=== PATIENT | male | born 1960 | race Caucasian/White ===

== ENCOUNTER 2019-10-13 11:00 | Outpatient (AMB) | payer MEDICAID, SELFPAY ==
[2019-10-13 11:00] VITALS: BMI 21.1
--- NOTE | 2019-10-13 11:00 | CWCCLINC_ITS ---
Review of Systems Review of Systems ROS Unobtainable: All systems reviewed & no additional complaints except as documented GI Gastrointestinal: Reports nausea and Reports other (hiccups) Musc Musculoskeletal: Reports back pain Skin/Breast Skin/Breast: Reports lesions (healing fistula at J-tube insertion site, 7-8 surgical incisions) Aller/Immun Comments: Allergy induced asthma Exam Const General: cooperative Orientation: alert Psych Mental Status: mental status grossly normal Mood: congruent mood Affect: normal affect Speech and Movement: speech and movement normal Attitude: cooperative Thought Process: normal Thought Content: normal Judgment: judgment good Supplemental Info Assessment and Plan 1. Esophageal cancer. S/P surgical resection with shortened esophagus. Do not anticipate mal-absorption issues as remainder of GI tract was not altered. Patient having some symptoms of reflux and lactose intolerance. Recommended smaller, more frequent meals and slower eating as well as lactose avoidance or use of Lactaid-type products. Patient to consult soon for post-surgical chemo. Advised patient of 1-[address] Jiménez for planning purposes. Re-assess at next encounter. 2. Asthma. Chronic. Patient continues to use Flovent on a PRN basis, which was previously advised against, but symptoms appear controlled at this time as PRN CHRISTOPHER use has significantly decreased to less than 1/week with no reported nighttime awakenings. Defer to PCP for continued management. 3. Low back pain. Chronic. CT from 04/22/2019 demonstrates moderate disc narrowing L5-S1. Patient aware of physical limitations and is controlling pain with physical accommodations and Harrah. Patient plans on seeing a specialist following completion of chemo. Monitor. 4. Fistula. Acute, improving following recent bedside excision in ED. Discharge significantly reduced to scant. Anticipate continued improvement and resolution. Re-assess at next encounter. Clinical Pharmacist Assessment Consultation Type Referral Source: Follow-Up Visit Program Patient eligibility programs: 2.7 Palliative Care Health Conditions Health Conditions: Esophageal CA Constipation IDT Present IDT Present: MD Dona Garber RN Lupe Fernandez, MSW Tiffany Lu, RD Patients stated concerns Patient's stated concerns: Hiccups, nausea when drinking fluids quickly Need for post-surgical chemo Scant drainage from fistula Subjective notes Subjective Narrative: Stefan is a pleasant 59 YO M who is on a telephone conference today for routine Palliative Care follow-up. He reports that his surgery went well as [facility] for esophageal CA. He states they removed a portion of his esophagus and 17 lymph nodes, 12 of which were positive. He has 7-8 incision sites which are healing well but his stomach incision looks rough . He reports having his J-tube accidentally pulled out about an hour before discharge from [facility]. He states he then had a lot of drainage from the site and underwent a surgical procedure in the ER a week ago. He states it is now draining just a small amount of whatever he drinks and he expects in to completely dry up in 1-2 days. He states his appetite is good and he is eating normally. He states he needs to drink fluids slowly or else he will get nausea or the hiccups. He states his weight was at a low of 130 lb when he originally was discharged from [facility] and he is now up to 146 lb He states he is expecting an appointment soon to see a medical oncologist at [facility] for post-surgical chemo. He states if the chemo is once every one or two weeks he is ok with travelling to [facility] for chemo but if it is more frequent he would rather see Dr. Jiménez locally. He states he has a follow-up with his [facility] surgeon in 3 months. He states his energy level is improving and he is walking every day and is able to work in the garden. He states he does experience low back pain if he stands, does too much or is in one position for too long but he has a lifting restriction of 10 lbs for 6 weeks, so his back has been better. He states he currently uses Harrah for pain and plans to see a specialist for his back after he is done with chemo. He states he had a CT in September that showed a 9mm lesion between S1 and L1. He rates his pain at 7- 8/10 at it's worst and describes it as non-stop, excruciating, and that it sometimes takes him to his knees. He states he has been using his Flovent inhaler prophylactically if he works in the garden or pulls weeds and that seems to help and he has not had to use his albuterol in the last week. He states he has been sleeping pretty good and has no swelling in his ankles. Objective Weight: 66.224 kg Medication and Supplements Medication and Supplements: Albuterol MDI PRN Flovent 110mcg 1 puff before outdoor activities Hydrocodone/APAP 10/325mg QID Patients Motivation/Goals Patients Motivation/Goals: Get well *CWC Office Visit complete CWC Offive Visit Complete CWC Visit Complete?: No
--- NOTE | 2019-10-13 15:54 | CWCCLINC_ITS ---
OP Palliative Care Referral source Referral Source: Follow-Up Visit (10/13/19 at 11:00 Am) Changes in weight Weight Gain: Yes Usual Body Weight: 65.487 kg Usual Body weight time frame: 1 Month ago (08/18/19: 144 lbs.) % change: 1 Weight Change Additional comment: Pt reported significant weight loss >7.5% x 3 months prior to admission to hospital in Jul 2019. Highest weight was 210 lbs. weight of 08/01/19: 146 lbs. 08/18/19: 144 lbs. Nutritional Assessment Total kcal: 2,322 Based on kcal/k Body Weight: Actual BW Proteins Protein Additional Comment: 79-86 gm protein/D (1.2-1.3 gm/kg ABW) Fluid Intake Total Fluid ml/d: 2,322 Total Fluid ml/k Follow-up Visit Follwo-up Visit comment: Pt Stefan Velarde attended the interdisciplinary Palliative follow up meeting over the phone on 10/13/19 at 11:00 Am. Current stated weight: 147 lbs (Home scale), 144 lb (08/18/19, hospital bed scale), Current stated Height: 5?10? Dx/PMH includes: Esophageal CA, Dysphagia, Jejunostomy feeding tube placement and removal August/September 2019, COPD, PNA. Pt Stefan reports he is now eating regular food with good appetite and intake. He states he pulled the J-tube out [place] [facility]. He states it had lot of leakage issues around the fistula before and now it?s gradually healed up after the J-tube removal, fistula area patched up and dried. He reports there is no tumor in his esophagus after surgery and he had 17 lymph nodes removed with 12 were cancerous so he needs F/U chemo down in [facility] in [place] or at [facility] in [place]. Stefan reports he eats about 4 meals a day and snack throughout the day. His typical breakfast consist of egg, turner, toast or waffle or cereal with almond milk or oat meal. Lunch can be left over, hot dog, sandwich including peanut butter jelly. Dinner include chicken and [facility]. He likes chicken and eats a lot of them and also likes fruits and vegetables. He usually drinks water and occasionally soda, no coffee or tea or other beverage reported. He states he needs to drink slowly otherwise it may cause hiccup or throw up. He reports he has diarrhea more often and he believe it may attributed to liquid milk and some milk product such as ice cream he ate. He can tolerate cheese, does not eat yogurt. Recommend substituting dairy milk with other milk including almond milk or he can consider using Lactaid milk or taking Lactase enzyme before consuming the dairy products that he has intolerance reaction. He also had constipation was on MOM and now his BM is more regular. Stefan reports he also takes Nutrition supplement of Boost or Ensure 3x/D to promote weight gain. He states he takes multivitamin supplements. Stefan would like to gain weight up to 170-185 lbs.; which is around his upper idea body weight range based on his current height. The highest weight he had been was 210 lbs and the lowest weight he was 130 lbs. Stefan reports he is stronger each day and doing more and more. He enjoys working in garden, walking and love to go out fishing in his boat when lakes open. He is currently has 6 weeks no more than 10 lbs. lifting restriction post- surgery. Summary: Stefan is encouraged to continue eating a Regular diet including more fruits and vegetables with small frequent meals and snacks. He is also encouraged to drink small amount of water slowly at a time with meals and in between meals. Stefan is encouraged to continue with ONS (Oral Nutritional Supplement) of Boost or Ensure to prevent weight loss and to achieve his weight gain goal. RD to monitor the medical progress and follow his nutrition and hydration need prn. *CWC Office Visit complete CWC Offive Visit Complete CWC Visit Complete?: No
--- NOTE | 2019-10-14 10:32 | CWCCLINC_ITS ---
Vital Signs 10/13/19 11:00 Height 1.78 m Height Method Stated Weight 66.678 kg Weight Measurement Method Stated by Patient BMI 21.1 Oxygen Delivery Method Room Air Comment Pain is 7-8 out of 10; Dr. Luna aware OP Palliative Care List Name, Facility and location of PCP: Rocio Preciado Review of symptoms: minor drainage from abdominal fistula How would you rate your diet: Good Do you have any of the following that interfere w/eating: No problems eating [facility] Comments: Called at 11:02am; Called Dr. Luna at 11:53 am; Conference call ended 12:03 pm Email address: [email or web address] Telephone conference call was done due to no face to face appointments occurring at this time. Patient continues to see Dr. Brasher and had a phone appointment with him last week. No recent blood work has been done except down at [facility]. Patient continues to use [facility]. Patient reported current weight is 147 pounds and that he believes that he is gaining weight. Patient had stated that he was 151 when he went down to [facility] prior to surgery. Patient had stated that he weighed 130 when he left [facility]. Patient reports that his pain is ?not so bad? and rated it at 7 to 8 out of 10. Patient stated that his back hurts when he does too much or stands for too long. Patient describes pain as non -stop and excruciating. Patient states no changes to his medications at this time. Patient is not on any oxygen at this time. Verbal head to toe assessment was completed with patient over the phone. Patient stated that he does not have any shortness of breath at this time but that he did have it due to having Pneumonia when he got out of the hospital. Patient reported that he was on an antibiotic for 14 days and just finished it a couple days ago. Patient reports no cough. Patient states that he does not have any more emanuel or sutures in his incision. Patient reported that it looks good and it is healing nicely. Patient reported that the incisions are open to air. Patient also reported that he has 7 or 8 incisions. Patient stated that he accidently pulled the J tube out on 10/04/2019 and that it is just about sealed. There is only a little dribble of drainage now and uses a band aid to co chuckie it up. Patient thinks that it will be dried up by tomorrow or the next day (10/14/2019 or 10/15/2019). Prognosis: Good Co-Morbitities: Cancer List Name, Facility and location of PCP: Rocio Preciado Prognosis: Good Care Enrique Coordinator: Dona Nunez date/time/location: 10/13/2019 at 11 am in the [facility] conference room on the conference phone Purpose of meeting: Palliative care follow up/symptom management Participants in meeting and relationship: Stefan Johns, Patient Emily Hernandez, MAMMOGRAPHER Dona Lu, RN Sherri Carl, PharmD Rita Clinton, Dietitian Dr. Carroll Luna joined conference call at the end of the discussion with the patient. How are patients wishes known: Patient cognitive/verbal Who is the decision maker for the patient: Patient Issues addressed: no major issues to report Discussion/Outcomes/Follow-up: Patient stated that his surgery down at [facility] went really well and that he will be having more chemo. [facility] surgeon will be referring him to an oncologist down there at [facility] for chemo. Patient states that he should be getting called anytime now for that appointment. Patient reported to Dr. Luna that of 17 lymph nodes that were removed that 12 of them were cancerous. Patient stated that he had a post-surgery PET scan. Patient reported that his appetite is good and that he has been eating good. He has no restrictions. Patient reported that there is no pain but found that when he drinks liquids that he can?t drink it to fast that it will cause hiccups. Patient stated that his last bowel movement was last night (10/12/2019) and was ?alright?. Patient states that he has diarrhea occasionally due to drinking milk. He has since cut out milk but drinks almond milk. Patient does not have any current constipation. Patient states that he sleeps pretty good stating that he watches a lot of television right now. Patient states that he still is under lifting restrictions and can?t lift more than 10 pounds for six weeks from surgery date. Patient stated that his energy level is getting better every day. Patient had reported that he is walking around and that he is working in the garden. Patient stated that he really did not have any issues and that things have been running smoothly lately and the only major issue that he had that was the leaking from where the J-tube was located. Patient was very happy to report that he is getting stronger every day. Patient also reported that Dr. Brasher will be ordering another chest x- ray and that the patient might get it done on Thursday (10/17/2019). Intervention list was scanned into the computer and emailed to the patient on 10/13/2019. Communication to other healthcare professionals: Dr. Luna made aware of the patient?s issues. Please see YANIV Diaz, DARVIN Salinas, and Jason PolancoD, notes for their recommendations for Dr. Luna. Symptom management recommnedations: See discussion Tenative date for F/U Patient family meeting: November 2019 List Name, Facility and location of PCP: Rocio Preciado *CWC Office Visit complete CWC Offive Visit Complete CWC Visit Complete?: No
--- NOTE | 2019-10-17 15:31 | CWCCLINC_ITS ---
Vital Signs 10/13/19 11:00 10/14/19 16:12 Height 1.78 m Height Method Stated Weight 66.678 kg 66.224 kg Weight Measurement Method Stated by Patient BMI 21.1 Oxygen Delivery Method Room Air Comment Pain is 7-8 out of 10; Dr. Luna aware OP Palliative Care List Name, Facility and location of PCP: Bjorn Brasher MD [place], [place] Prognosis: Good Who patient wants involved in care decisions: Patient confirmed his father Josh Johns and his mother Fanny Johns are his surrogate/medical decision makers. Primary Medical Surrogate Decision Maker?: Yes Existing Advance Directive: Yes POLST Form: No List Name, Facility and location of PCP: Bjorn Brasher MD [place], [place] Patient Diagnosis: Esophageal Cancer Prognosis: Good Current goal of care: Life-prolonging Mental Status: Alert and Oriented Coping Status: Coping well Emotional Status: Appropriate Mood. Learning needs: Motivational Home situation: Patient lives alone. Patient's home is in the same property as his parents and they share household bills. Support System: Good Financial Status: [facility] Care Conf Coordinator: Katy Nunez date/time/location: 10/13/2019 11am [facility] Conference Room via telephone conference Patient Diagnosis: Esophageal Cancer Purpose of meeting: Palliative Care follow-up/symptoms management Participants in meeting and relationship: Stefan Johns, patient Sherri Carl, pharmD Emily Hernandez, ENRICHMENT DIRECTOR Dona Lu, RN Rita Clinton, Dietitian Dr. Carroll Luna How are patients wishes known: Patient cognitive/verbal Who is the decision maker for the patient: Patient Issues addressed: Financial problems Discussion/Outcomes/Follow-up: This is a 59 year-old male who presented to his Palliative Care follow-up meeting via telephone conference. Patient has surgery in September at [facility] and had the tumor in his esophagus removed. Patient reported the surgery went well. Patient reported he now has to do more chemo. Patient reported he is waiting for an oncology referral at [facility] and is willing to do chemo there if he does not have to travel often. Patient reported if he has to do chemo in [place] he would prefer to have a referral to see Dr. Jiménez at [facility] rather than continue with Dr. Huber. Pharmacist did inform patient that if he does decide to proceed with chemo treatment with Dr. Jiménez he will experience a delay in seeing him given his busy schedule at this time. Patient verbalized understanding. Patient also accidently pulled out his J-tube shortly after returning from [facility]. He was seen at [facility] and had the J-tube removed. Patient does have drainage from abdominal fistula. Dr. Luna was to look to see if patient can be followed by Home Health. Patient is now able to eat orally. Patient reported he also had pneumonia after being discharged from [facility], and was on antibiotics. Patient reported he is now finished with his antibiotics, but has to see his PCP to do a chest x-ray. He reported he will follow-up on Thursday. Patient reported his sleep is good. Patient reported his appetite is good. Patie nt reported no pain when eating. Patient reported he does have to eat slower. Patient reported his energy is getting better every day. Patient reported he has been walking and working on the Garden. Patient reported he has a lifting restriction and cannot lift more than 10lbs. for 6 weeks. Patient reported he is taking it easy. Patient reported if he does stand a lot it does irritate the area. Patient appears to be mindful and aware of his body and knows when he needs to take a break and rest. Patient?s mood was within normal limits and thought process was congruent with thought content. Patient able to communicate effectively. No concerns with patient?s overall mood and emotional well-being. Patient appears to be coping well despite his health problems. Patient reported he had a CT scan after his surgery and was told a lesion was found. Patient reported he is not there yet in dealing with this new problem. Patient reported this will be his next project to take care of unless he begins to have pain in the area. Discussed with patient his feelings about upcoming chemo he is awaiting. Patient reported it is stressful to think about it but it does not interfere with his ability to fu nction. Patient reported his stress about it is normal. Patient focus is positive. Patient declined depression and anxiety. Discussed self-care strategies. Recommended patient to continue walking and gardening being mindful of his limitations. Patient reported he keeps himself busy with projects he has around his home. Patient also working on cleaning his boat so he can be ready for the culp to open once COVID-19 restrictions are lifted since it is currently closed. Patient reported he is able to complete his ADL?s. Patient reported he does get some help with his home, but he has been doing pretty good doing things on his own. Patient reported he has not done a follow-up on his Social Security Disability benefits appeal. Patient reported he will be working on this and reaching out to an advocate. Patient reported he is waiting for his stimulus check to be sent to him. Patient is able to check the internet for the status of the check. Patient reported he does receive general assistance in the amount of $103 per month. Patient also receives $194 in food stamps. Patient shares gas and electricity bills with his parents. Patient?s home is in the same property as his parents. Patient reported he has been behind on his bills. Patient reported he did receive ENRICHMENT DIRECTOR?s email last month with resources. Patient was interested in information on the agency that can help with once bill per year for electricity and gas. ENRICHMENT DIRECTOR will email patient the resources. Patient reported he also use to go to food dal[employer], but has not gone lately. Patient named the two he would attend. He was open to receiving information on food dal[employer] which ENRICHMENT DIRECTOR will email him. Patient does not drive as he does not have a license. Patient reported his parents assist with transportation. Patient also is active in calling [employer] care to set up mileage reimbursement for his rides to medical appointments. If needed he will also request transportation services from logistic care to his medical appointments. See Dona Lu, RN note for further nursing evaluation and medical concerns. See Sherri PharmD notes for recommendations on medications and medical concerns. See Rita Clinton, Clerk Checker notes for further recommendations and counseling on nutrition. ENRICHMENT DIRECTOR emailed patient the following resources on 10/17/2019: Low income home energy assistance program, [facility] [employer] contact information for assistance with bills, and the link to [employer] where patient can see the food distribution locations in October. Tenative date for F/U Patient family meeting: November 2019 Advanced Directive: Yes POLST Form: No Primary Medical Surrogate Decision Maker?: Yes List Name, Facility and location of PCP: Bjorn Brasher MD [place], [place] *CWC Office Visit complete CWC Offive Visit Complete CWC Visit Complete?: Yes
== END 2019-10-13 12:00 | disposition home or self-care (01) ==
LOC: HODCWC 11:18
PROVIDERS: PCP Radiology Therapeutic Radiology; Referring Provider Family Medicine; Visit Provider Family Medicine
DX: Z51.5 Encounter for palliative care (principal)